=== PATIENT | male | born 1980 | race Caucasian/White ===

== ENCOUNTER 2017-03-10 12:00 | Inpatient (IN) | payer OTHER ==
[~2017-03-10] VITALS: Ht 175.3 cm; Wt 79.4 kg
--- NOTE | ~2017-03-10 | CO ---
Unit #: [id number] #: [id number] Patient: JUDIT CERVANTES [id number] [facility] [address] [place] [address] [id number] I MR#: [id number] NAME: JUDIT CERVANTES ROOM: [facility] Age: 36 Sex: M Admission Date: 03/10/2017 : 1980 Attending Physician: Brisa Hendricks M.D. Primary Care Physician: Kanwal Doctor Not In System Consultation Date: 03/16/2017 CONSULTATION REPORT ORDERING PROVIDER Dr. Hendricks. REASON FOR CONSULT Nausea and vomiting. SUBJECTIVE The patient reports that on 03/10/2017 [facility] for uncontrollable vomiting. He believes that was due to his detoxing, but he also received a shot of Phenergan prior to going. He received several injections of Zofran and Phenergan while in the hospital, but he continued to have intractable vomiting. Today, he woke up around 3 a.m. and his throat was hurting. He went to the nurse's station and they gave him ice cream. Later on during the night, he started having diarrhea. He approached the nurse's station and asked for Imodium. They did not have any ordered for him, but gave him a shot of Zofran. He reports shortly after the Zofran injection, he started vomiting severely. Later on the day, he was given a shot of Phenergan and he continued to vomit severely. He is starting to feel better now, but is worried about eating and does not think he can keep anything down. He is urinating well and the diarrhea has subsided. His throat continues to be a little bit sore. OBJECTIVE VITAL SIGNS: Temperature 99.3, heart rate 104, and blood pressure 122/91. ABDOMEN: Soft and nontender. Bowel sounds in all 4 quadrants. HEENT: His throat shows enlarged tonsils, but no erythema or exudate. ASSESSMENT Nausea and vomiting. PLAN Plan is to discontinue the Zofran and the Phenergan. Continue to allow the patient to have clear liquids and continue to monitor. If nausea and vomiting persist, I told the patient that it would not be related to the Zofran and Phenergan injections, which he is adamant that caused his nausea and vomiting. Lab work done today is unremarkable. We will continue to monitor this patient. Dictated by... Brooke Nath A.P.R.N. Unit #: [id number] #: [id number] Patient: JUDIT CERVANTES OBI/amado TD: 03/17/2017 16:08 JOB #: [id number] CONSULTATION REPORT Page 1 of 1 X BROOKE NATH APRN X CONSULTATION REPORT
--- NOTE | ~2017-03-10 | PN ---
Unit #: [id number] #: [id number] Patient: JUDIT BRINK [id number] [facility] [address] [place] [address] [id number] I MR#: [id number] NAME: JUDIT BRINK ROOM: [facility] Age: 36 Sex: M Admission Date: 03/10/2017 : 1980 Attending Physician: Brisa Hendricks M.D. Admitting Physician: Brisa Hendricks M.D. Primary Care Physician: Generic Doctor Not In System [facility] PROGRESS NOTES DATE 03/11/2017 DISCUSSION Mr. Brink is a 36-year-old, white male who was seen today and chart was reviewed and case was discussed with the staff. He has been anxious, withdrawn and rather seclusive to himself and has more distress and discomfort. Meanwhile, he has been taking the medication and tolerating them fairly well with no reported side effects. MENTAL STATUS EXAM Young white male who was casually dressed with fair personal hygiene, appears to be in no acute distress or discomfort. He was awake and alert on interaction with intact orientation. His mood was anxious with congruent affect. His speech was slow and goal directed. He denies any suicidal or homicidal ideation. Also, denies any auditory or visual hallucinations. His insight and judgement remains slightly impaired. TREATMENT PLAN 1. We will continue him on his current medications and treatment protocol. We will monitor his response and make further adjustments as needed. 2. We will continue to follow up. Dictated by... Haseeb Fernandes/ginny TD: 03/11/2017 20:40 JOB #: [id number] Unit #: [id number] #: [id number] Patient: JUDIT BRINK PROGRESS NOTES Page 1 of 1 X Brisa Hendricks MD PROGRESS NOTE
--- NOTE | ~2017-03-10 | PN ---
Unit #: [id number] #: [id number] Patient: JUDIT BRINK [id number] [facility] [address] [place] [address] [id number] I MR#: [id number] NAME: JUDIT BRINK ROOM: [facility] Age: 36 Sex: M Admission Date: 03/10/2017 : 1980 Attending Physician: Brisa Hendricks M.D. Admitting Physician: Brisa Hendricks M.D. Primary Care Physician: Kanwal Doctor Not In System [facility] PROGRESS NOTES DATE OF SERVICE 03/12/2017 DISCUSSION Mr. Brink is a 36-year-old white male with substance abuse and mood disorder who was seen today. Chart was reviewed and case was discussed with the staff. He was lying in his bed and was describing himself to be in distress or discomfort stating that he has been nauseous and has been feeling sick in stomach, and his whole body hurts, and he has not been able to eat and has been unable to have his breakfast this morning and just ate a popsicle. Meanwhile, he has been taking the medications and has been cooperative with the treatment-related activities. MENTAL STATUS EXAMINATION Young white male who is casually dressed with fair personal hygiene, appears to be in no acute distress or discomfort. He was awake and alert with impaired attention and concentration. His mood is anxious with congruent affect. He denies any suicidal or homicidal ideation. His insight and judgment remain slightly impaired. TREATMENT PLAN 1. We will continue him on his current detox protocol as well as his medications. We will monitor his response to the medications and make further adjustments as needed. 2. We will continue to follow up. Dictated by... Haseeb Fernandes/zulema TD: 03/12/2017 15:10 JOB #: [id number] Unit #: [id number] #: [id number] Patient: JUDIT BRINK PROGRESS NOTES Page 1 of 1 X Brisa Hendricks MD PROGRESS NOTE
--- NOTE | ~2017-03-10 | CO ---
Unit #: [id number] #: [id number] Patient: JUDIT CERVANTES [id number] [facility] [address] [place] [address] [id number] I MR#: [id number] NAME: JUDIT CERVANTES ROOM: [facility] Age: 36 Sex: M Admission Date: 03/10/2017 : 1980 Attending Physician: Brisa Hendricks M.D. Primary Care Physician: Generic Doctor Not In System Consultation Date: 03/14/2017 CONSULTATION REPORT SUBJECTIVE Jduit is a 36-year-old admitted because of his abuse of opioids. Since his admission, he has had significant nausea and vomiting. He had to be sent out to [facility] Emergency Room where he received 2 L of fluids and then returned back to [facility]. He has done some better since that time, but has continued with periodic nausea, vomiting and complaints of abdominal pain. We were asked to see him for this. OBJECTIVE GENERAL: Alert, well nourished, walking the halls, no apparent distress. VITAL SIGNS: Blood pressure 120/90, heart rate 80, respirations 16, temperature 97.9, weight 175, height 5 feet 9 inches. ABDOMEN: Soft with mild tenderness across the epigastric area. Positive bowel sounds. No hepatosplenomegaly noted. ASSESSMENT Nausea and vomiting related to opioid withdrawal. PLAN Add Pepcid 20 mg 1 p.o. daily and Carafate 1 g p.o. a.c. and h.s. Continue with liquid diet and advance as tolerated. Dictated by... Chelita Hughes P.A.-C. for Haseeb Mari/amado TD: 03/16/2017 02:37 JOB #: [id number] CONSULTATION REPORT Page 1 of 1 X Chelita Hughes CONSULTATION REPORT
--- NOTE | ~2017-03-10 | PN ---
Unit #: [id number] #: [id number] Patient: JUDIT BRINK [id number] [facility] [address] [place] [address] [id number] I MR#: [id number] NAME: JUDIT BRINK ROOM: [facility] Age: 36 Sex: M Admission Date: 03/10/2017 : 1980 Attending Physician: Brisa Hendricks M.D. Admitting Physician: rBisa Hendricks M.D. Primary Care Physician: Kanwal Doctor Not In System [facility] PROGRESS NOTES DATE OF SERVICE: 03/15/2017 SUBJECTIVE Mr. Brink is a 36-year-old white male with substance abuse and mood disorder, who was seen today and chart was reviewed, and case was discussed with the staff. He has been anxious, withdrawn, and rather seclusive to himself. Meanwhile, he has been cooperative with treatment recommendation and has been taking medications and tolerating them fairly well with no reported side effects. MENTAL STATUS EXAMINATION Young white male, who was casually dressed with fair personal hygiene, appears to be in no acute distress or discomfort. He was awake and alert on interaction with intact orientation. His mood was anxious with a congruent affect. He denies any suicidal or homicidal ideation. His insight and judgment remain slightly impaired. TREATMENT PLAN 1. We will continue his current medications and treatment protocol. We will monitor his response to medications and make further adjustments as needed. 2. We will continue to follow up. Dictated by... Haseeb Fernandes/funmilayol TD: 03/18/2017 00:24 JOB #: [id number] [facility] PROGRESS NOTES Page 1 of 1 X Brisa Hendricks MD PROGRESS NOTE
--- NOTE | ~2017-03-10 | PN ---
Unit #: [id number] #: [id number] Patient: JUDIT BRINK [id number] [facility] [address] [place] [address] [id number] I MR#: [id number] NAME: JUDIT BRINK ROOM: [facility] Age: 36 Sex: M Admission Date: 03/10/2017 : 1980 Attending Physician: Brisa Hendricks M.D. Admitting Physician: Brisa Hendricks M.D. Primary Care Physician: Kanwal Doctor Not In System [facility] PROGRESS NOTES DATE 03/14/2017 DISCUSSION Mr. Brink is a 36-year-old white male with substance abuse and mood disorder who was seen today and chart was reviewed and case was discussed with the staff. He has been vomiting profusely and staff informed me that they have given everything they possibly could including oral and IM Phenergan and Zofran one after another and he has not quit puking. However, there is some element of infection in his blood workup going on and recommendations for another blood count as well as blood chemistry to be drawn this morning to make sure that his level of infection is not increasing and he is not going dehydrated as well as requesting medical consultation to address an element of infection going on that could be complicating the detox symptoms. MENTAL STATUS EXAMINATION Young white male who was casually dressed with fair personal hygiene and appears to be in distress or discomfort. He was awake and alert with impaired attention and concentration. His mood was anxious with congruent affect. His speech is slow and restricted in content. He denies any suicidal or homicidal ideations. His insight and judgement remains slightly impaired. TREATMENT PLAN 1. Will continue on his current medications and treatment protocol. Will monitor his response to the medications and make further adjustments as needed. 2. Will continue to follow up. Dictated by... Haseeb Fernandes/tanisha TD: 03/14/2017 18:47 JOB #: [id number] Unit #: [id number] #: [id number] Patient: JUDIT BRINK PROGRESS NOTES Page 1 of 1 X EladioBrisa Celeste MD X PROGRESS NOTE
--- NOTE | ~2017-03-10 | PA ---
Unit #: [id number] #: [id number] Patient: JUD[facility]INK [id number] [facility] [address] [place] [address] [id number] I MR#: [id number] NAME: JUDIT BRINK ROOM: [facility] Age: 36 Sex: M Admission Date: 03/10/2017 : 1980 Date of Assessment: Attending Physician: Brisa Hendricks M.D. Admitting Physician: Brisa Hendricks M.D. Primary Care Physician: Kanwal Doctor Not In System PSYCHIATRIC ASSESSMENT DATE OF SERVICE 03/10/2017. IDENTIFYING DATA Mr. Brink is a 36-year-old single white male, who is a resident of [place], [place], and was self-referred to the hospital on a voluntary basis. CHIEF COMPLAINT "I'm withdrawing off opioids." HISTORY OF PRESENT ILLNESS Mr. Brink is a 36-year-old white male with history of opioid dependence, who was brought to the hospital and upon presentation, he stated that he has been withdrawing from opioids and "I've been using Roxicet 30 mg six pills a day on and off for the last 10 years. Different levels of sobriety over the past 6 months. I've been using daily 5 to 6 pills a day. My last use was a couple of days ago. I've been residing at since 03/08/2017 and I've been to [facility] 8 years ago for detox. The oxys are laced with fentanyl." He was seen to have some significant withdrawal symptoms and was in distress and discomfort and had cows of 17 indicating significant opioid-related withdrawal symptoms. He also reports increasing depression, anxiety, irritability, restlessness, and feelings of hopelessness and helplessness, but denies any suicidal ideations, intent, or plan. SUBSTANCE ABUSE HISTORY The patient reports history of experimentation with alcohol, but opioids has been his drug of choice stating that he has been using opioids regularly for the last 10 years. PAST PSYCHIATRIC HISTORY The patient has had [facility] and is currently residing in a long-term house and review of the medical records indicate that he is not active in any treatment program, is not seeing a psychiatrist, and is not taking any psychotropic medications. PAST MEDICAL HISTORY No acute or chronic medical illnesses. ALLERGIES No known medication allergies. Unit #: [id number] #: [id number] Patient: JUDIT BRINK CURRENT MEDICATIONS None. PERSONAL AND SOCIAL HISTORY A 36-year-old white male, who reports that he is single, unemployed, and lives in a long-term house and has poor social support system. MENTAL STATUS EXAMINATION Young white male who was casually dressed with fair personal hygiene, appears to be in no acute distress or discomfort. He was awake and alert on interaction with intact orientation to time, place, and person. His mood was anxious and depressed with a congruent affect. His speech was slow and restricted in content. His thought processes were disorganized with some looseness of associations and suicidal ideations. He denies any suicidal or homicidal ideations and also denies any auditory or visual hallucinations. His insight and judgment remain significantly impaired. DIAGNOSTIC IMPRESSION Psychiatric: Opioid dependence, moderate and acute withdrawals; opioid-induced mood disorder. Medical: None. Stressors: Moderate psychosocial stressors. TREATMENT PLAN 1. The patient has presented with history of mood disorder and substance abuse, and has been decompensating and will need inpatient hospitalization for detoxification, safety, and stabilization. We will start him on detox protocol. We will closely monitor for any worsening withdrawal symptoms. 2. Supportive therapy was provided to the patient. 3. Safe, structured, and nourishing environment will be provided. ESTIMATED LENGTH OF STAY 5 to 7 days. ABILITY TO HELP SELF Limited. WILLINGNESS TO HELP SELF The patient appears to be willing to help self. STRENGTHS 1. Communicative. 2. Cooperative. PROBLEMS 1. Chronic dysphoric symptoms. 2. Chronic chemical dependency. 3. Poor social support system. DISCHARGE CRITERIA This will be contingent upon the patient's ability to go through detox without having any significant withdrawal symptoms as well as his ability to stay safe to himself, particularly after discharge from the hospital. Dictated by... Brisa Hendricks M.D. Unit #: [id number] #: [id number] Patient: JUDIT BRINK IAA/modl TD: 03/11/2017 06:36 JOB #: [id number] PSYCHIATRIC ASSESSMENT Page 1 of 1 X Brisa Hendricks MD PSYCHIATRIC ASSESSMENT
--- NOTE | ~2017-03-10 | PN ---
Unit #: [id number] #: [id number] Patient: JUDIT BRINK [id number] [facility] [address] [place] [address] [id number] MR#: [id number] NAME: JUDIT BRINK ROOM: [facility] Age: 36 Sex: M Admission Date: 03/10/2017 : 1980 Attending Physician: Brisa Hendricks M.D. Admitting Physician: Brisa Hendricks M.D. Primary Care Physician: Generic Doctor Not In System [facility] PROGRESS NOTES DATE March 16, 2017 DISCUSSION Mr. Brink is a 36-year-old white male, who was seen today and chart was reviewed and the case was discussed with the staff. He has been still complaining of vomiting and has remained quite entitled, constantly demanding some things that are impossible, like ice creams and other stuff, and when someone goes against his desire he states that he is not happy and staff has not been able to find any relief as he is constantly coming out and approaching the nurses' station and asking for different articles and different things, and does not appear to be motivated as you would expect him to. MENTAL STATUS EXAMINATION Young white male, who was casually dressed with fair personal hygiene and appears to be in no acute distress or discomfort. He was awake and alert with intact orientation. His mood is anxious with a congruent affect. He denies any suicidal or homicidal ideations. His insight and judgment remain slightly impaired. TREATMENT PLAN 1. We will continue him on his current medications and treatment protocol, and will monitor his response to the medications, and make further adjustments as needed. 2. We will continue to followup. Dictated by... Haseeb Fernandes/royce TD: 03/17/2017 11:13 JOB #: [id number] Unit #: [id number] #: [id number] Patient: UJDIT BRINK PROGRESS NOTES Page 1 of 1 X Brisa Hendricks MD PROGRESS NOTE
--- NOTE | ~2017-03-10 | DS ---
Unit #: [id number] #: [id number] Patient: JUDIT BRINK [id number] [place] [address] [id number] MR#: [id number] NAME: JUDIT BRINK ROOM: [facility] Age: 36 Sex: M Admission Date: 03/10/2017 : 1980 Discharge Date: 03/17/2017 Attending Physician: Brisa Hendricks M.D. Primary Care Physician: Generic Doctor Not In System DISCHARGE SUMMARY IDENTIFICATION DATA Mr. Brink is a 36-year-old single white male who is a resident of [place], [place], and was self-referred to the hospital on a voluntary basis. DISCHARGE DIAGNOSES PSYCHIATRIC: Opioid dependence, moderate, in acute withdrawal. Opiate-induced mood disorder. MEDICAL: None. STRESSORS: Mild psychosocial stressors. HISTORY OF PRESENT ILLNESS Same as in initial psychiatric evaluation. PAST PSYCHIATRIC HISTORY Same as in initial psychiatric evaluation. PAST MEDICAL HISTORY Same as in initial psychiatric evaluation. HOSPITAL COURSE The patient was admitted to the adult chemical dependency unit at [facility] and was oriented to the hospital environment. Routine p.r.n. medications were initiated, and he was started on the opioid detox protocol and was closely monitored. He was taking the medications regularly and was tolerating them fairly well and was able to come out of the detox without any complications and was willing to continue treatment on outpatient basis, and as such it was decided that she will be discharged home and continue treatment on outpatient basis. DISCHARGE MEDICATIONS None CONDITION AT DISCHARGE Stable. PROGNOSIS Guarded. Dictated by... Brisa Hendricks M.D. Unit #: [id number] #: [id number] Patient: JUDIT BRINK IAA/bzg TD: 03/20/2017 08:05 JOB #: [id number] DISCHARGE SUMMARY Page 1 of 1 X Brisa Hendricks MD DISCHARGE SUMMARY
--- NOTE | ~2017-03-10 | PN ---
Unit #: [id number] #: [id number] Patient: JUDIT BRINK [id number] [facility] [address] [place] [address] [id number] I MR#: [id number] NAME: JUDIT BRINK ROOM: [facility] Age: 36 Sex: M Admission Date: 03/10/2017 : 1980 Attending Physician: Brisa Hendricks M.D. Admitting Physician: Brisa Hendricks M.D. Primary Care Physician: Generic Doctor Not In System [facility] PROGRESS NOTES DATE OF SERVICE 03/13/2017 DISCUSSION Mr. Brink is a 36-year-old white male who was seen today. Chart was reviewed and case was discussed with the staff. He has been anxious, withdrawn, and seclusive to himself and has been actively vomiting and still has been in significant detox symptom and has not been able to keep food down and is rolling in his bed and describes himself to be in distress or discomfort. MENTAL STATUS EXAMINATION Young white male who is casually dressed with fair personal hygiene, appears to be in no acute distress or discomfort. He was awake and alert with impaired attention and concentration. His mood is anxious with congruent affect. Speech is slow and tangential. His thought processes were disorganized with some looseness of associations and denies any suicidal or homicidal ideations. His insight and judgment remain slightly impaired. TREATMENT PLAN 1. We will continue him on his current treatment protocol. We will monitor his response to the medications and make further adjustments as needed. 2. We will continue to follow up. Dictated by... Haseeb Fernandes/zulema TD: 03/13/2017 11:41 JOB #: [id number] Unit #: [id number] #: [id number] Patient: JUDIT BRINK PROGRESS NOTES Page 1 of 1 X Brisa Hendricks MD PROGRESS NOTE
--- NOTE | ~2017-03-10 | HP ---
Unit #: [id number] #: [id number] Patient: JUDIT CERVANTES [id number] [place] [address] [id number] MR#: [id number] NAME: JUDIT CERVANTES ROOM: [facility] Age: 36 Sex: M Admission Date: 03/10/2017 : 1980 Attending Physician: Brisa Hendricks M.D. Admitting Physician: Brisa Hendricks M.D. Primary Care Physician: Kanwal Doctor Not In System HISTORY AND PHYSICAL HISTORY OF PRESENT ILLNESS Judit is a 36 year old, admitted to the [facility] because of his abuse of opioids. He is detoxing. PAST MEDICAL HISTORY Long history of opioid abuse. PAST SURGICAL HISTORY Nothing reported. ALLERGIES No known drug allergies. SOCIAL HISTORY He smokes one pack per day, drinks alcohol rarely, admits to a long history of opioid abuse. FAMILY HISTORY Medically noncontributory. REVIEW OF SYSTEMS CONSTITUTIONAL: No fever or chills. HEENT: Denies any sore throat, ear pain or runny nose. CARDIOVASCULAR: Denies chest pain, irregular heart rhythm or palpitations. CHEST: Denies shortness of breath or cough. No hemoptysis. GASTROINTESTINAL: Denies nausea, vomiting, diarrhea or chronic constipation. ENDOCRINE: Denies history of increased thirst or urination. No recent significant weight loss or gain. GENITOURINARY: Denies dysuria, frequency, or hematuria. SKIN: Denies any rashes. HEMATOLOGIC: Denies history of increased bleeding or bruising. MUSCULOSKELETAL: Denies any hot, swollen joints. No generalized muscle pain. NEUROLOGIC: Denies problems with vision or speech. No frequent, severe headaches. No numbness, tingling or weakness in any extremities. Denies loss of bladder or bowel control. CURRENT MEDICATIONS Detox protocol. PHYSICAL EXAMINATION GENERAL: Alert, well-nourished, no apparent distress. Unit #: [id number] #: [id number] Patient: JUDIT CERVANTES VITAL SIGNS: Blood pressure 130/78, heart rate 82, respirations 16, temperature 98.6. WEIGHT: Not recorded. HEIGHT: 5 feet 9 inches. SKIN: Warm and dry without rash or lesion. HEENT: Normocephalic. TMs not viewed. Oral and nasal passages clear. Conjunctivae clear. PERRLA. EOMs intact. NECK: Supple without lymphadenopathy or thyromegaly. HEART: Regular rate and rhythm without murmur. LUNGS: Clear. ABDOMEN: Soft, nontender. : Not done. EXTREMITIES: No evidence of cyanosis, clubbing or edema. Moves all without focal deficit. NEUROLOGICAL: Grossly within normal limits. Cranial Nerves: II: Visual santos are intact. III, IV AND : Extraocular movements are intact. Pupils are equal, round and reactive to light. V: Facial sensation is grossly normal. VII: Facial movements and expression are normal. VIII: Auditory acuity grossly intact. IX, X: Uvula is midline. Phonation is normal. XI: Patient shrugs shoulders and turns head normally. XII: Tongue protrudes in the midline. Sensory and Motor Function: Sensory and motor sensation is grossly normal. Motor: moves all extremities well. Coordination: Gait is normal. Deep Tendon Reflexes: Intact. IMPRESSION Psychiatric admission. RECOMMENDATIONS Psychiatric, per psychiatrist. MEDICAL I see no contraindications to participating in facility's activities. MEDICAL PROGNOSIS Good. MEDICAL CONDITION Stable. Dictated by... Ruth WilsonAAriel. for Haseeb Mari/royce TD: 03/11/2017 12:12 JOB #: [id number] Unit #: [id number] #: [id number] Patient: JUDIT CERVANTES HISTORY AND PHYSICAL Page 1 of 1 X Chelita Hughes HISTORY AND PHYSICAL
[2017-03-11 12:40] LABS: BASOPHIL% 0.1 % (0-2.5); HEMATOCRIT 42.6 % (38.0-50.0); HEMOGLOBIN 14.9 gm/dL (13.0-16.0); LYMPHOCYTE# 1.1 X10e3 (1.0-3.5); LYMPHOCYTE% 6.4 % (17.0-45.0); MEAN CELL VOLUME 89.1 FL (83-96); MEAN CORPUSCULAR HEMOGLOBIN 31.2 PG (28-34); MEAN PLATELET VOLUME 9.5 FL (6.5-11.5); MONOCYTE# 1.4 X10e3 (0-1.0); MONOCYTE% 7.6 % (3.0-12.0); NEUTROPHIL# 15.2 X10e3 (1.5-7.1); NEUTROPHIL% 85.9 % (40-75); PLATELET COUNT 238 X10e3 (140-420); RED BLOOD COUNT 4.78 X10e (3.90-5.60); RED CELL DISTRIBUTION WIDTH 13.2 % (11.0-15.5); WHITE BLOOD COUNT 17.7 X10e3 (4.0-10.5)
[2017-03-11 12:41] LABS: DIFF IND YES
[2017-03-11 12:44] LABS: ALBUMIN SERUM 4.4 g/dL (3.5-5.0); BILIRUBIN,TOTAL 0.9 mg/dL (0.2-2.0); BUN/CREATININE RATIO 22.5; CALCIUM SERUM 9.4 mg/dL (8.4-10.2); CREATININE SERUM 0.8 mg/dL (0.6-1.4); POTASSIUM 3.6 mmol/L (3.5-5.1); PROTEIN TOTAL SERUM 7.3 g/dL (6.0-8.3)
[2017-03-11 13:12] LABS: PLATELET ESTIMATE NORMAL (NORMAL)
[2017-03-14 09:35] LABS: BASOPHIL% 0.2 % (0-2.5); DIFF IND NO; EOSINOPHIL% 0.2 % (0.0-7.0); HEMATOCRIT 44.1 % (38.0-50.0); HEMOGLOBIN 15.4 gm/dL (13.0-16.0); LYMPHOCYTE# 2.6 X10e3 (1.0-3.5); LYMPHOCYTE% 21.1 % (17.0-45.0); MEAN CELL VOLUME 89.2 FL (83-96); MEAN CORPUSCULAR HEMOGLOBIN 31.2 PG (28-34); MEAN PLATELET VOLUME 9.1 FL (6.5-11.5); MONOCYTE% 8.5 % (3.0-12.0); NEUTROPHIL# 8.5 X10e3 (1.5-7.1); PLATELET COUNT 248 X10e3 (140-420); RED BLOOD COUNT 4.95 X10e (3.90-5.60); RED CELL DISTRIBUTION WIDTH 12.9 % (11.0-15.5); WHITE BLOOD COUNT 12.1 X10e3 (4.0-10.5)
[2017-03-14 09:41] LABS: ALBUMIN SERUM 4.2 g/dL (3.5-5.0); BILIRUBIN,TOTAL 1.4 mg/dL (0.2-2.0); BUN/CREATININE RATIO 17.77; CALCIUM SERUM 9.3 mg/dL (8.4-10.2); CREATININE SERUM 0.9 mg/dL (0.6-1.4); GLOM FILT RATE Estimated 109.5 mL/min (>60); POTASSIUM 3.9 mmol/L (3.5-5.1); PROTEIN TOTAL SERUM 7.1 g/dL (6.0-8.3)
[2017-03-16 13:12] LABS: BASOPHIL% 0.3 % (0-2.5); EOSINOPHIL% 0.4 % (0.0-7.0); HEMATOCRIT 41.2 % (38.0-50.0); HEMOGLOBIN 14.8 gm/dL (13.0-16.0); LYMPHOCYTE# 2.1 X10e3 (1.0-3.5); LYMPHOCYTE% 21.6 % (17.0-45.0); MEAN CELL VOLUME 88.5 FL (83-96); MEAN CORPUSCULAR HEMOGLOBIN 31.8 PG (28-34); MEAN CORPUSCULAR HGB CONC 35.9 g/dL (30-36); MEAN PLATELET VOLUME 8.9 FL (6.5-11.5); MONOCYTE# 0.6 X10e3 (0-1.0); NEUTROPHIL# 7.1 X10e3 (1.5-7.1); NEUTROPHIL% 71.7 % (40-75); PLATELET COUNT 246 X10e3 (140-420); RED BLOOD COUNT 4.65 X10e (3.90-5.60); RED CELL DISTRIBUTION WIDTH 12.6 % (11.0-15.5); WHITE BLOOD COUNT 9.9 X10e3 (4.0-10.5)
[2017-03-16 13:14] LABS: DIFF IND NO
[2017-03-16 13:32] LABS: ALBUMIN SERUM 4.1 g/dL (3.5-5.0); BUN/CREATININE RATIO 13.33; CALCIUM SERUM 9.1 mg/dL (8.4-10.2); CREATININE SERUM 0.9 mg/dL (0.6-1.4); GLOM FILT RATE Estimated 109.5 mL/min (>60); POTASSIUM 4.3 mmol/L (3.5-5.1)
== END 2017-03-17 09:20 | DRG 897 ==
LOC: P1E 15:22
PROVIDERS: Psychiatry & Neurology Psychiatry
PROC: HZ2ZZZZ Detoxification Services for Substance Abuse Treatment (ICD-10-PCS; principal; 2017-03-10)
DX: F11.23 Opioid dependence with withdrawal (principal); F11.24 Opioid dependence with opioid-induced mood disorder; F17.200 Nicotine dependence, unspecified, uncomplicated; R11.2 Nausea with vomiting, unspecified
CPT/HCPCS: 80053; 85025; 86592; 87651; J2405; J2550; J3411